=== PATIENT | female | born 1955 | race Caucasian/White ===

== ENCOUNTER 2020-10-18 13:06 | Inpatient (IN) ==
[2020-10-18] MEDS ORDERED: Isovue-370 500 ML BOTTLE IVP ONE (14:18)
[2020-10-18 15:04] LABS: Basophils % 0.4 %; Eosinophils # 0.3 K/mcL (0.0-0.6); Eosinophils % 2.5 %; Hematocrit 38.4 % (35.3-44.9); Hemoglobin 12.4 g/dL (11.5-15.4); Immature Granulocytes % 0.8 % (0-4); Lymphocytes # 2.3 K/mcL (0.6-4.6); Lymphocytes % 21.3 %; Mean Corpuscular HGB Conc 32.3 g/dL (31.6-35.5); Mean Corpuscular Hemoglobin 27.4 pg (28.0-33.3); Mean Platelet Volume 8.7 fL (9.4-12.4); Monocytes # 0.7 K/mcL (0.0-1.3); Monocytes % 6.4 %; Neutrophils # 7.4 K/mcL (1.6-8.9); Platelet Count 290 K/mcL (140-400); Red Blood Count 4.52 M/mcL (3.82-4.97); Red Cell Distribution Width 14.3 % (11.5-14.5); Segmented Neutrophils % 68.6 %; White Blood Count 10.8 K/mcL (4.3-11.1)
[2020-10-18 15:17] LABS: BUN/Creatinine Ratio 10 (6-26); Blood Urea Nitrogen 5 mg/dL (8-23); Calcium 9.3 mg/dL (8.6-10.3); Carbon Dioxide 28 mEq/L (23-29); Chloride 104 mEq/L (98-107); Glucose 170 mg/dL (70-105); Osmolality,Calculated 289 (280-300); Potassium 4.3 mEq/L (3.5-5.1); Sodium 139 mEq/L (136-145); eGFR For African Americans > 60 (> 60); eGFR For Non-African Americans > 60 (> 60)
[2020-10-18] MEDS ORDERED: Piperacillin/Tazobactam 3.375 GM in 0.9 % Sodium Chloride Mini Bag 100 ML IVPB ONE (16:34)
[2020-10-18] MEDS ORDERED: Vancomycin 1,750 MG/517.5 ML IV.SOLN IVPB ONE (17:00)
[2020-10-18] MEDS ORDERED: Naloxone 0.4 MG/ML INJ IVP PRN (17:11)
[2020-10-18] MEDS ORDERED: Ondansetron 4 MG/2 ML VIAL IVP PRN (17:11)
[2020-10-18] MEDS ORDERED: Dextrose Gel 15 GM/37.5 ML TUBE PO PRN ×2 (17:42)
[2020-10-18] MEDS ORDERED: D5% in Water 1,000 ML IVC PRN (17:42)
[2020-10-18] MEDS ORDERED: *HR* Dextrose 50 % in Water (Vial) 50 ML VIAL IVP PRN (17:42)
[2020-10-18 17:54] LABS: Estimated Average Glucose 249 mg/dl; Hemoglobin A1C 10.3 %
[2020-10-18 17:58] LABS: INR 1.2
[2020-10-18] MEDS ORDERED: Acetaminophen IV 1,000 MG/100 ML BAG IVPB PRN (18:42)
[2020-10-18] MEDS: Insulin LISPRO 300 UNITS/3 ML VIAL SUBQ SCH (19:02)
[2020-10-18] MEDS: *HR* Heparin 5,000 UNIT/ML VIAL SQ SCH (21:04)
[2020-10-18] MEDS: 0.9 % Sodium Chloride 1,000 ML IVC SCH (21:06)
[2020-10-19] MEDS ORDERED: Vancomycin 1,500 MG/265 ML IV.SOLN IVPB SCH ×2 (05:00→17:00)
[2020-10-19] MEDS: *HR* Heparin 5,000 UNIT/ML VIAL SQ SCH (06:28)
[2020-10-19] MEDS: Piperacillin/Tazobactam 3.375 GM in 0.9 % Sodium Chloride Mini Bag 100 ML IVPB SCH ×3 (06:45→16:42)
[2020-10-19] MEDS: Insulin LISPRO 300 UNITS/3 ML VIAL SUBQ SCH ×3 (06:46→17:05)
[2020-10-19 07:20] LABS: Basophils % 0.5 %; Eosinophils # 0.3 K/mcL (0.0-0.6); Eosinophils % 3.7 %; Hematocrit 34.9 % (35.3-44.9); Immature Granulocytes % 0.7 % (0-4); Lymphocytes # 2.6 K/mcL (0.6-4.6); Lymphocytes % 29.4 %; Mean Corpuscular HGB Conc 31.5 g/dL (31.6-35.5); Mean Corpuscular Hemoglobin 27.6 pg (28.0-33.3); Mean Corpuscular Volume 87.7 fL (83.0-100.0); Monocytes # 0.6 K/mcL (0.0-1.3); Monocytes % 7.3 %; Neutrophils # 5.1 K/mcL (1.6-8.9); Platelet Count 271 K/mcL (140-400); Red Blood Count 3.98 M/mcL (3.82-4.97); Red Cell Distribution Width 14.6 % (11.5-14.5); Segmented Neutrophils % 58.4 %; White Blood Count 8.7 K/mcL (4.3-11.1)
[2020-10-19 07:42] LABS: Alanine Aminotransferase 15 Units/L (7-52); Albumin 3.1 g/dL (3.5-5.7); Albumin/Globulin Ratio 1.2 (1.1-2.2); Alkaline Phosphatase 100 Units/L (34-104); Aspartate Amino Transferase 15 Units/L (13-39); BUN/Creatinine Ratio 13 (6-26); Bilirubin,Total 0.4 mg/dL (0.3-1.0); Blood Urea Nitrogen 7 mg/dL (8-23); Calcium 8.5 mg/dL (8.6-10.3); Carbon Dioxide 27 mEq/L (23-29); Chloride 107 mEq/L (98-107); Globulin 2.6 g/dL (2.4-3.5); Glucose 210 mg/dL (70-105); Osmolality,Calculated 294 (280-300); Potassium 3.8 mEq/L (3.5-5.1); Sodium 140 mEq/L (136-145); Total Protein 5.7 g/dL (6.4-8.9); eGFR For African Americans > 60 (> 60); eGFR For Non-African Americans > 60 (> 60)
[2020-10-19] MEDS ORDERED: *HR* Rocuronium Bromide 50 MG/5 ML VIAL ONE ×2 (07:53→09:07)
[2020-10-19 08:17] LABS: Adenovirus Not Detected (Not Detect); Bordetella Pertussis Not Detected (Not Detect); Chlamydophila pneumoniae Not Detected (Not Detect); Coronavirus 229E Not Detected (Not Detect); Coronavirus HKU1 Not Detected (Not Detect); Coronavirus NL63 Not Detected (Not Detect); Coronavirus OC43 Not Detected (Not Detect); Human Metapneumovirus Not Detected (Not Detect); Human Rhinovirus/Enterovirus Not Detected (Not Detect); Influenza A Subtype 2009 H1 Not Detected (Not Detect); Influenza B Not Detected (Not Detect); Mycoplasma pneumoniae Not Detected (Not Detect); Parainfluenza Virus 1 Not Detected (Not Detect); Parainfluenza Virus 2 Not Detected (Not Detect); Parainfluenza Virus 3 Not Detected (Not Detect); Parainfluenza Virus 4 Not Detected (Not Detect); Respiratory Syncytial Virus Not Detected (Not Detect); SARS-CoV-2 Not Detected (Not Detect)
[2020-10-19] MEDS ORDERED: Lidocaine -MPF 2% 2 ML VIAL ONE (09:07)
[2020-10-19] MEDS ORDERED: Dexamethasone 4 MG/ML VIAL ONE (09:07)
[2020-10-19] MEDS ORDERED: Ondansetron 4 MG/2 ML VIAL ONE (09:07)
[2020-10-19] MEDS ORDERED: *HR* FentaNYL (PF) 100 MCG/2 ML VIAL ONE (09:07)
[2020-10-19] MEDS ORDERED: *HR* Propofol 200 MG/20 ML VIAL IVP ONE (09:07)
[2020-10-19] MEDS ORDERED: Lidocaine HCL 4 ML Topical Solution (Laryng-O-Jet Kit Sterile Pak) TP ONE (09:10)
[2020-10-19] MEDS ORDERED: *HR* PHENYLEPHRINE 1,000 MCG/10 ML SYRINGE IVP ONE (10:00)
[2020-10-19] MEDS ORDERED: Sugammadex Sodium 200 MG/2 ML VIAL IV ONE (10:00)
[2020-10-19] MEDS ORDERED: EPHEDrine 50 MG/ML VIAL ONE (10:01)
[2020-10-19] MEDS ORDERED: *HR* Dextrose 50 % in Water (Vial) 50 ML VIAL IVP PRN (11:40)
[2020-10-19] MEDS ORDERED: Ondansetron 4 MG/2 ML VIAL IVP PRN (11:40)
[2020-10-19] MEDS ORDERED: Dextrose Gel 15 GM/37.5 ML TUBE PO PRN ×2 (11:40)
[2020-10-19] MEDS ORDERED: Naloxone 0.4 MG/ML INJ IVP PRN (11:40)
[2020-10-19] MEDS ORDERED: D5% in Water 1,000 ML IVC PRN (11:40)
[2020-10-19] MEDS ORDERED: 0.9 % Sodium Chloride 1,000 ML IVC SCH (11:40)
[2020-10-19] MEDS ORDERED: Acetaminophen IV 1,000 MG/100 ML BAG IVPB PRN (11:40)
[2020-10-19] MEDS ORDERED: Insulin LISPRO 300 UNITS/3 ML VIAL SUBQ SCH ×2 (12:00→21:00)
[2020-10-19] MEDS: 0.9 % Sodium Chloride 1,000 ML IVC SCH (16:40)
[2020-10-19] MEDS: BuPROPion SR (12 HR) 150 MG TABLET PO SCH (20:21)
[2020-10-20] MEDS: Piperacillin/Tazobactam 3.375 GM in 0.9 % Sodium Chloride Mini Bag 100 ML IVPB SCH ×4 (00:06→23:20)
[2020-10-20 03:45] LABS: Basophils % 0.4 %; Eosinophils # 0.2 K/mcL (0.0-0.6); Eosinophils % 1.7 %; Hematocrit 34.4 % (35.3-44.9); Hemoglobin 10.8 g/dL (11.5-15.4); Immature Granulocytes % 1.1 % (0-4); Lymphocytes # 2.5 K/mcL (0.6-4.6); Mean Corpuscular HGB Conc 31.4 g/dL (31.6-35.5); Mean Corpuscular Hemoglobin 27.1 pg (28.0-33.3); Mean Corpuscular Volume 86.4 fL (83.0-100.0); Mean Platelet Volume 8.9 fL (9.4-12.4); Monocytes # 0.7 K/mcL (0.0-1.3); Monocytes % 6.4 %; Neutrophils # 6.8 K/mcL (1.6-8.9); Platelet Count 293 K/mcL (140-400); Red Blood Count 3.98 M/mcL (3.82-4.97); Red Cell Distribution Width 14.3 % (11.5-14.5); Segmented Neutrophils % 66.4 %; White Blood Count 10.3 K/mcL (4.3-11.1)
[2020-10-20 04:01] LABS: BUN/Creatinine Ratio 11 (6-26); Blood Urea Nitrogen 8 mg/dL (8-23); Calcium 8.5 mg/dL (8.6-10.3); Carbon Dioxide 27 mEq/L (23-29); Chloride 104 mEq/L (98-107); Glucose 259 mg/dL (70-105); Osmolality,Calculated 293 (280-300); Sodium 138 mEq/L (136-145); eGFR For African Americans > 60 (> 60); eGFR For Non-African Americans > 60 (> 60)
[2020-10-20] MEDS: Vancomycin 1,500 MG/265 ML IV.SOLN IVPB SCH (05:18)
[2020-10-20] MEDS: Insulin LISPRO 300 UNITS/3 ML VIAL SUBQ SCH ×3 (08:49→18:06)
[2020-10-20] MEDS: lisinopriL 20 MG TABLET PO SCH (08:51)
[2020-10-20] MEDS: BuPROPion SR (12 HR) 150 MG TABLET PO SCH ×2 (08:51→21:28)
[2020-10-20] MEDS: Insulin DETEMIR 100 UNIT/ML X5UNITS SUBQ SCH (21:28)
[2020-10-21 04:26] LABS: Basophils # 0.1 K/mcL (0.0-0.2); Basophils % 0.6 %; Eosinophils # 0.3 K/mcL (0.0-0.6); Eosinophils % 3.3 %; Hematocrit 33.1 % (35.3-44.9); Hemoglobin 10.6 g/dL (11.5-15.4); Lymphocytes # 2.7 K/mcL (0.6-4.6); Lymphocytes % 30.7 %; Mean Corpuscular Hemoglobin 27.7 pg (28.0-33.3); Mean Corpuscular Volume 86.6 fL (83.0-100.0); Mean Platelet Volume 8.6 fL (9.4-12.4); Monocytes # 0.5 K/mcL (0.0-1.3); Monocytes % 5.6 %; Neutrophils # 5.1 K/mcL (1.6-8.9); Platelet Count 278 K/mcL (140-400); Red Blood Count 3.82 M/mcL (3.82-4.97); Red Cell Distribution Width 14.6 % (11.5-14.5); Segmented Neutrophils % 58.8 %; White Blood Count 8.7 K/mcL (4.3-11.1)
[2020-10-21 04:45] LABS: BUN/Creatinine Ratio 12 (6-26); Blood Urea Nitrogen 7 mg/dL (8-23); Calcium 8.5 mg/dL (8.6-10.3); Carbon Dioxide 27 mEq/L (23-29); Chloride 104 mEq/L (98-107); Glucose 275 mg/dL (70-105); Osmolality,Calculated 294 (280-300); Potassium 3.9 mEq/L (3.5-5.1); Sodium 138 mEq/L (136-145); eGFR For African Americans > 60 (> 60); eGFR For Non-African Americans > 60 (> 60)
[2020-10-21] MEDS: Vancomycin 1,500 MG/265 ML IV.SOLN IVPB SCH (05:07)
[2020-10-21] MEDS: Piperacillin/Tazobactam 3.375 GM in 0.9 % Sodium Chloride Mini Bag 100 ML IVPB SCH ×2 (08:57→18:04)
[2020-10-21] MEDS: lisinopriL 20 MG TABLET PO SCH (08:58)
[2020-10-21] MEDS: BuPROPion SR (12 HR) 150 MG TABLET PO SCH ×2 (08:59→20:50)
[2020-10-21] MEDS: Calcium Gluconate 1gm/50mL 1 GM/50 ML BAG IVPB SCH ×2 (08:59→16:58)
[2020-10-21] MEDS: Insulin LISPRO 300 UNITS/3 ML VIAL SUBQ SCH ×4 (09:52→17:02)
[2020-10-21] MEDS ORDERED: Melatonin 3 MG TABLET PO PRN (16:05)
[2020-10-21] MEDS: *HR* Heparin 5,000 UNIT/ML VIAL SQ SCH (16:59)
[2020-10-21] MEDS: Vancomycin 1,250 MG/262.5 ML IV.SOLN IVPB SCH (18:05)
[2020-10-21] MEDS: Insulin DETEMIR 100 UNIT/ML X5UNITS SUBQ SCH (22:04)
[2020-10-22] MEDS: Piperacillin/Tazobactam 3.375 GM in 0.9 % Sodium Chloride Mini Bag 100 ML IVPB SCH ×2 (00:54→20:52)
[2020-10-22] MEDS: Vancomycin 1,250 MG/262.5 ML IV.SOLN IVPB SCH (05:21)
[2020-10-22] MEDS: *HR* Heparin 5,000 UNIT/ML VIAL SQ SCH ×2 (05:22→17:15)
[2020-10-22 06:30] LABS: Hematocrit 34.8 % (35.3-44.9); Mean Corpuscular HGB Conc 31.6 g/dL (31.6-35.5); Mean Corpuscular Hemoglobin 27.5 pg (28.0-33.3); Mean Platelet Volume 9.7 fL (9.4-12.4); Platelet Count 230 K/mcL (140-400); Red Cell Distribution Width 14.5 % (11.5-14.5)
[2020-10-22 06:51] LABS: % Iron Saturation 16 % (15-50); BUN/Creatinine Ratio 14 (6-26); Blood Urea Nitrogen 8 mg/dL (8-23); Carbon Dioxide 27 mEq/L (23-29); Chloride 102 mEq/L (98-107); Glucose 223 mg/dL (70-105); Iron 43 mcg/dL (50-170); Magnesium 1.7 mg/dL (1.6-2.6); Osmolality,Calculated 291 (280-300); Phosphorous 3.7 mg/dL (2.7-4.5); Potassium 3.6 mEq/L (3.5-5.1); Sodium 138 mEq/L (136-145); Transferrin 188 mg/dL (203-362); eGFR For African Americans > 60 (> 60); eGFR For Non-African Americans > 60 (> 60)
[2020-10-22 07:07] LABS: Ferritin 215 ng/mL (10-120)
[2020-10-22 07:13] LABS: Folate 10.5 ng/mL (3.0-16.0)
[2020-10-22] MEDS ORDERED: Iron Sucrose Complex 400 MG in 0.9 % Sodium Chloride 250 ML IVPB ONE (07:27)
[2020-10-22] MEDS: BuPROPion SR (12 HR) 150 MG TABLET PO SCH ×2 (08:13→19:30)
[2020-10-22] MEDS: Multivit/Ca/Min/Fe/FA 1 TAB TABLET PO SCH (08:13)
[2020-10-22] MEDS: lisinopriL 20 MG TABLET PO SCH (08:13)
[2020-10-22] MEDS: Cyanocobalamin (B-12) 1,000 MCG TABLET PO SCH (08:13)
[2020-10-22] MEDS: NIFEdipine XL (24 HR) 30 MG TAB.ER.24 PO SCH (08:13)
[2020-10-22] MEDS: Insulin LISPRO 300 UNITS/3 ML VIAL SUBQ SCH ×6 (08:14→17:15)
[2020-10-22] MEDS: levoFLOXacin 750 MG TABLET PO SCH (13:10)
[2020-10-22] MEDS: Amoxicillin 500 MG CAPSULE PO SCH ×2 (13:10→19:30)
[2020-10-22] MEDS: Lactobacillus 1 EACH CAP.SPRINK PO SCH ×2 (13:10→19:30)
[2020-10-22] MEDS: Doxycycline 100 MG CAPSULE PO SCH ×2 (13:10→19:30)
[2020-10-22] MEDS ORDERED: Sennosides/Docusate Sodium TABLET PO PRN (15:35)
[2020-10-22] MEDS: Insulin DETEMIR 100 UNIT/ML X5UNITS SUBQ SCH (20:48)
[2020-10-23 02:13] LABS: Hematocrit 36.1 % (35.3-44.9); Hemoglobin 11.7 g/dL (11.5-15.4); Mean Corpuscular HGB Conc 32.4 g/dL (31.6-35.5); Mean Corpuscular Hemoglobin 27.9 pg (28.0-33.3); Mean Platelet Volume 8.8 fL (9.4-12.4); Platelet Count 273 K/mcL (140-400); Red Cell Distribution Width 14.8 % (11.5-14.5); White Blood Count 8.5 K/mcL (4.3-11.1)
[2020-10-23 02:31] LABS: BUN/Creatinine Ratio 15 (6-26); Blood Urea Nitrogen 8 mg/dL (8-23); Carbon Dioxide 25 mEq/L (23-29); Chloride 103 mEq/L (98-107); Glucose 212 mg/dL (70-105); Magnesium 1.7 mg/dL (1.6-2.6); Osmolality,Calculated 289 (280-300); Phosphorous 3.4 mg/dL (2.7-4.5); Potassium 3.6 mEq/L (3.5-5.1); Sodium 137 mEq/L (136-145); eGFR For African Americans > 60 (> 60); eGFR For Non-African Americans > 60 (> 60)
[2020-10-23] MEDS: *HR* Heparin 5,000 UNIT/ML VIAL SQ SCH ×2 (05:33→18:56)
[2020-10-23] MEDS: Multivit/Ca/Min/Fe/FA 1 TAB TABLET PO SCH (10:45)
[2020-10-23] MEDS: Amoxicillin 500 MG CAPSULE PO SCH ×2 (10:45→19:29)
[2020-10-23] MEDS: Cyanocobalamin (B-12) 1,000 MCG TABLET PO SCH (10:45)
[2020-10-23] MEDS: NIFEdipine XL (24 HR) 30 MG TAB.ER.24 PO SCH (10:45)
[2020-10-23] MEDS: BuPROPion SR (12 HR) 150 MG TABLET PO SCH ×2 (10:45→19:29)
[2020-10-23] MEDS: Doxycycline 100 MG CAPSULE PO SCH ×2 (10:46→19:29)
[2020-10-23] MEDS: levoFLOXacin 750 MG TABLET PO SCH (10:46)
[2020-10-23] MEDS: Magnesium Oxide 400 MG TABLET PO SCH ×2 (10:46→19:29)
[2020-10-23] MEDS: lisinopriL 20 MG TABLET PO SCH (10:46)
[2020-10-23] MEDS: Lactobacillus 1 EACH CAP.SPRINK PO SCH ×2 (10:46→19:29)
[2020-10-23] MEDS: Insulin LISPRO 300 UNITS/3 ML VIAL SUBQ SCH ×6 (10:46→18:56)
[2020-10-23] MEDS: Insulin DETEMIR 100 UNIT/ML X5UNITS SUBQ SCH (20:32)
[2020-10-24] MEDS: *HR* Heparin 5,000 UNIT/ML VIAL SQ SCH ×2 (05:25→17:21)
[2020-10-24 05:48] LABS: Hematocrit 36.9 % (35.3-44.9); Hemoglobin 11.4 g/dL (11.5-15.4); Mean Corpuscular HGB Conc 30.9 g/dL (31.6-35.5); Mean Corpuscular Hemoglobin 26.9 pg (28.0-33.3); Mean Platelet Volume 8.5 fL (9.4-12.4); Platelet Count 276 K/mcL (140-400); Red Blood Count 4.24 M/mcL (3.82-4.97); Red Cell Distribution Width 15.3 % (11.5-14.5); White Blood Count 8.8 K/mcL (4.3-11.1)
[2020-10-24 06:11] LABS: BUN/Creatinine Ratio 27 (6-26); Blood Urea Nitrogen 18 mg/dL (8-23); Calcium 9.1 mg/dL (8.6-10.3); Carbon Dioxide 25 mEq/L (23-29); Chloride 103 mEq/L (98-107); Glucose 223 mg/dL (70-105); Magnesium 1.9 mg/dL (1.6-2.6); Osmolality,Calculated 291 (280-300); Phosphorous 3.7 mg/dL (2.7-4.5); Potassium 4.2 mEq/L (3.5-5.1); Sodium 136 mEq/L (136-145); eGFR For African Americans > 60 (> 60); eGFR For Non-African Americans > 60 (> 60)
[2020-10-24] MEDS: Magnesium Oxide 400 MG TABLET PO SCH ×2 (07:57→19:51)
[2020-10-24] MEDS: Lactobacillus 1 EACH CAP.SPRINK PO SCH ×2 (07:57→19:51)
[2020-10-24] MEDS: BuPROPion SR (12 HR) 150 MG TABLET PO SCH ×2 (07:57→19:51)
[2020-10-24] MEDS: Amoxicillin 500 MG CAPSULE PO SCH ×2 (07:57→19:51)
[2020-10-24] MEDS: Doxycycline 100 MG CAPSULE PO SCH ×2 (07:57→19:51)
[2020-10-24] MEDS: Cyanocobalamin (B-12) 1,000 MCG TABLET PO SCH (07:58)
[2020-10-24] MEDS: Insulin LISPRO 300 UNITS/3 ML VIAL SUBQ SCH ×6 (07:58→17:22)
[2020-10-24] MEDS: Multivit/Ca/Min/Fe/FA 1 TAB TABLET PO SCH (07:58)
[2020-10-24] MEDS: lisinopriL 20 MG TABLET PO SCH (07:58)
[2020-10-24] MEDS: NIFEdipine XL (24 HR) 30 MG TAB.ER.24 PO SCH (07:58)
[2020-10-24] MEDS: levoFLOXacin 750 MG TABLET PO SCH (07:58)
[2020-10-24] MEDS: Insulin DETEMIR 100 UNIT/ML X5UNITS SUBQ SCH (19:56)
[2020-10-24] MEDS: Acetaminophen 325 MG TABLET PO PRN (23:39)
[2020-10-25] MEDS: *HR* Heparin 5,000 UNIT/ML VIAL SQ SCH ×2 (05:03→17:24)
[2020-10-25] MEDS: Cyanocobalamin (B-12) 1,000 MCG TABLET PO SCH (08:35)
[2020-10-25] MEDS: Doxycycline 100 MG CAPSULE PO SCH ×2 (08:35→19:04)
[2020-10-25] MEDS: Lactobacillus 1 EACH CAP.SPRINK PO SCH ×2 (08:35→19:04)
[2020-10-25] MEDS: NIFEdipine XL (24 HR) 30 MG TAB.ER.24 PO SCH (08:35)
[2020-10-25] MEDS: BuPROPion SR (12 HR) 150 MG TABLET PO SCH ×2 (08:36→19:04)
[2020-10-25] MEDS: Magnesium Oxide 400 MG TABLET PO SCH ×2 (08:36→19:04)
[2020-10-25] MEDS: Amoxicillin 500 MG CAPSULE PO SCH ×2 (08:36→19:04)
[2020-10-25] MEDS: lisinopriL 20 MG TABLET PO SCH (08:36)
[2020-10-25] MEDS: levoFLOXacin 750 MG TABLET PO SCH (08:36)
[2020-10-25] MEDS: Multivit/Ca/Min/Fe/FA 1 TAB TABLET PO SCH (08:36)
[2020-10-25] MEDS: Insulin LISPRO 300 UNITS/3 ML VIAL SUBQ SCH ×6 (08:37→17:24)
[2020-10-25] MEDS: Acetaminophen 325 MG TABLET PO PRN ×2 (12:52→22:20)
[2020-10-25] MEDS: Insulin DETEMIR 100 UNIT/ML X5UNITS SUBQ SCH (20:09)
[2020-10-26] MEDS: *HR* Heparin 5,000 UNIT/ML VIAL SQ SCH ×2 (05:16→17:26)
[2020-10-26 05:30] LABS: Hematocrit 36.3 % (35.3-44.9); Hemoglobin 11.2 g/dL (11.5-15.4); Mean Corpuscular HGB Conc 30.9 g/dL (31.6-35.5); Mean Corpuscular Hemoglobin 26.9 pg (28.0-33.3); Mean Corpuscular Volume 87.3 fL (83.0-100.0); Platelet Count 277 K/mcL (140-400); Red Blood Count 4.16 M/mcL (3.82-4.97); Red Cell Distribution Width 15.7 % (11.5-14.5); White Blood Count 9.7 K/mcL (4.3-11.1)
[2020-10-26 05:48] LABS: BUN/Creatinine Ratio 35 (6-26); Blood Urea Nitrogen 26 mg/dL (8-23); Calcium 9.1 mg/dL (8.6-10.3); Carbon Dioxide 28 mEq/L (23-29); Chloride 104 mEq/L (98-107); Glucose 218 mg/dL (70-105); Osmolality,Calculated 297 (280-300); Potassium 4.3 mEq/L (3.5-5.1); Sodium 138 mEq/L (136-145); eGFR For African Americans > 60 (> 60); eGFR For Non-African Americans > 60 (> 60)
[2020-10-26] MEDS: Cyanocobalamin (B-12) 1,000 MCG TABLET PO SCH (08:17)
[2020-10-26] MEDS: Multivit/Ca/Min/Fe/FA 1 TAB TABLET PO SCH (08:17)
[2020-10-26] MEDS: NIFEdipine XL (24 HR) 30 MG TAB.ER.24 PO SCH (08:17)
[2020-10-26] MEDS: levoFLOXacin 750 MG TABLET PO SCH (08:17)
[2020-10-26] MEDS: Magnesium Oxide 400 MG TABLET PO SCH ×2 (08:18→21:18)
[2020-10-26] MEDS: Doxycycline 100 MG CAPSULE PO SCH ×2 (08:18→21:18)
[2020-10-26] MEDS: BuPROPion SR (12 HR) 150 MG TABLET PO SCH ×2 (08:18→21:18)
[2020-10-26] MEDS: Amoxicillin 500 MG CAPSULE PO SCH ×2 (08:18→21:18)
[2020-10-26] MEDS: lisinopriL 20 MG TABLET PO SCH (08:18)
[2020-10-26] MEDS: Lactobacillus 1 EACH CAP.SPRINK PO SCH ×2 (08:18→21:18)
[2020-10-26] MEDS: Insulin LISPRO 300 UNITS/3 ML VIAL SUBQ SCH ×6 (08:26→18:54)
[2020-10-26] MEDS ORDERED: Insulin DETEMIR 100 UNIT/ML X5UNITS SUBQ SCH (21:00)
[2020-10-27 04:22] LABS: Hematocrit 37.2 % (35.3-44.9); Hemoglobin 11.7 g/dL (11.5-15.4); Mean Corpuscular HGB Conc 31.5 g/dL (31.6-35.5); Mean Corpuscular Hemoglobin 27.4 pg (28.0-33.3); Mean Corpuscular Volume 87.1 fL (83.0-100.0); Mean Platelet Volume 8.9 fL (9.4-12.4); Platelet Count 266 K/mcL (140-400); Red Blood Count 4.27 M/mcL (3.82-4.97); Red Cell Distribution Width 15.5 % (11.5-14.5); White Blood Count 9.4 K/mcL (4.3-11.1)
[2020-10-27 04:41] LABS: BUN/Creatinine Ratio 33 (6-26); Blood Urea Nitrogen 25 mg/dL (8-23); Calcium 9.2 mg/dL (8.6-10.3); Carbon Dioxide 23 mEq/L (23-29); Chloride 105 mEq/L (98-107); Glucose 235 mg/dL (70-105); Magnesium 1.9 mg/dL (1.6-2.6); Osmolality,Calculated 294 (280-300); Phosphorous 3.9 mg/dL (2.7-4.5); Sodium 136 mEq/L (136-145); eGFR For African Americans > 60 (> 60); eGFR For Non-African Americans > 60 (> 60)
[2020-10-27] MEDS: *HR* Heparin 5,000 UNIT/ML VIAL SQ SCH (05:02)
[2020-10-27 07:57] VITALS: BP 130/75
[2020-10-27] MEDS: Cyanocobalamin (B-12) 1,000 MCG TABLET PO SCH (09:56)
[2020-10-27] MEDS: Lactobacillus 1 EACH CAP.SPRINK PO SCH (09:56)
[2020-10-27] MEDS: levoFLOXacin 750 MG TABLET PO SCH (09:56)
[2020-10-27] MEDS: BuPROPion SR (12 HR) 150 MG TABLET PO SCH (09:56)
[2020-10-27] MEDS: Amoxicillin 500 MG CAPSULE PO SCH (09:56)
[2020-10-27] MEDS: NIFEdipine XL (24 HR) 30 MG TAB.ER.24 PO SCH (09:56)
[2020-10-27] MEDS: Magnesium Oxide 400 MG TABLET PO SCH (09:56)
[2020-10-27] MEDS: lisinopriL 20 MG TABLET PO SCH (09:56)
[2020-10-27] MEDS: Insulin LISPRO 300 UNITS/3 ML VIAL SUBQ SCH ×4 (09:57→12:23)
[2020-10-27] MEDS: Multivit/Ca/Min/Fe/FA 1 TAB TABLET PO SCH (09:57)
[2020-10-27] MEDS: Doxycycline 100 MG CAPSULE PO SCH (10:02)
== END 2020-10-27 15:36 | disposition home health service (06) | DRG 571 ==
LOC: 3ANU 13:06 → EMEROOARM 13:06 → SUATTDRO 16:49 → 3ANU 18:24 → SUATTDRO 10-20 15:24
PROVIDERS: ADMIT General Practice; ATTEND Internal Medicine

== ENCOUNTER 2021-07-06 14:00 | Inpatient (IN) ==
[2021-07-06] MEDS ORDERED: Melatonin 3 MG TABLET PO PRN (18:39)
[2021-07-06] MEDS ORDERED: Naloxone 0.4 MG/ML INJ IVP PRN (18:39)
[2021-07-06] MEDS ORDERED: Acetaminophen 325 MG TABLET PO PRN (18:39)
[2021-07-06] MEDS ORDERED: Remdesivir 200 MG in 0.9 % Sodium Chloride 100 ML IVPB ONE (18:41)
[2021-07-06] MEDS ORDERED: *HR* Dextrose 50 % in Water (Syg) 50 ML SYRINGE IVP PRN (20:36)
[2021-07-06] MEDS ORDERED: Dextrose Gel 15 GM/37.5 ML TUBE PO PRN ×2 (20:36)
[2021-07-06] MEDS ORDERED: D5% in Water 1,000 ML IVC PRN (20:36)
[2021-07-06] MEDS: Insulin DETEMIR 100 UNIT/ML X5UNITS SUBQ SCH (21:49)
[2021-07-06] MEDS: Insulin LISPRO 300 UNITS/3 ML VIAL SUBQ SCH (21:49)
[2021-07-07] MEDS: *HR* Enoxaparin 40 MG/0.4 ML SYRINGE SQ SCH (05:14)
[2021-07-07 05:34] LABS: Hemoglobin 11.8 g/dL (11.5-15.4); Mean Corpuscular HGB Conc 32.8 g/dL (31.6-35.5); Mean Corpuscular Hemoglobin 27.6 pg (28.0-33.3); Mean Corpuscular Volume 84.1 fL (83.0-100.0); Mean Platelet Volume 9.4 fL (9.4-12.4); Platelet Count 268 K/mcL (140-400); Red Blood Count 4.28 M/mcL (3.82-4.97); Red Cell Distribution Width 14.5 % (11.5-14.5); White Blood Count 7.2 K/mcL (4.3-11.1)
[2021-07-07 06:29] LABS: Alanine Aminotransferase 11 Units/L (7-52); Albumin 3.5 g/dL (3.5-5.7); Albumin/Globulin Ratio 1.2 (1.1-2.2); Alkaline Phosphatase 70 Units/L (34-104); Aspartate Amino Transferase 18 Units/L (13-39); BUN/Creatinine Ratio 31 (6-26); Bilirubin,Total 0.4 mg/dL (0.3-1.0); Blood Urea Nitrogen 21 mg/dL (8-23); Calcium 8.5 mg/dL (8.6-10.3); Carbon Dioxide 27 mEq/L (23-29); Chloride 97 mEq/L (98-107); Globulin 2.9 g/dL (2.4-3.5); Glucose 315 mg/dL (70-105); Magnesium 2.1 mg/dL (1.6-2.6); Osmolality,Calculated 297 (280-300); Phosphorous 3.1 mg/dL (2.7-4.5); Potassium 3.7 mEq/L (3.5-5.1); Sodium 136 mEq/L (136-145); Total Protein 6.4 g/dL (6.4-8.9); eGFR For African Americans > 60 (> 60); eGFR For Non-African Americans > 60 (> 60)
[2021-07-07] MEDS ORDERED: Remdesivir 100 MG in 0.9 % Sodium Chloride 100 ML IVPB SCH ×2 (09:00→15:00)
[2021-07-07] MEDS: Insulin LISPRO 300 UNITS/3 ML VIAL SUBQ SCH ×4 (09:51→20:54)
[2021-07-07 09:52] LABS: C-Reactive Protein 94 mg/L (Less than 10)
[2021-07-07] MEDS: Furosemide 40 MG TABLET PO SCH (09:52)
[2021-07-07] MEDS: NIFEdipine XL (24 HR) 30 MG TAB.ER.24 PO SCH (09:52)
[2021-07-07] MEDS: Insulin DETEMIR 100 UNIT/ML X5UNITS SUBQ SCH ×2 (09:52→20:54)
[2021-07-07] MEDS: levoFLOXacin 750 MG/150 ML 750 MG/150 ML BAG IVPB SCH ×3 (09:53→18:53)
[2021-07-07] MEDS: Dexamethasone Sodium Phos/PF 10 MG/ML VIAL IVP SCH (09:53)
[2021-07-07] MEDS: Remdesivir 100 MG in 0.9 % Sodium Chloride 100 ML IVPB SCH (18:32)
[2021-07-08 04:06] LABS: Basophils % 0.1 %; Hematocrit 37.3 % (35.3-44.9); Hemoglobin 11.9 g/dL (11.5-15.4); Immature Granulocytes % 0.7 % (0-4); Lymphocytes # 0.8 K/mcL (0.6-4.6); Lymphocytes % 11.3 %; Mean Corpuscular HGB Conc 31.9 g/dL (31.6-35.5); Mean Corpuscular Hemoglobin 26.9 pg (28.0-33.3); Mean Corpuscular Volume 84.4 fL (83.0-100.0); Mean Platelet Volume 9.1 fL (9.4-12.4); Monocytes # 0.3 K/mcL (0.0-1.3); Monocytes % 4.9 %; Neutrophils # 5.7 K/mcL (1.6-8.9); Platelet Count 283 K/mcL (140-400); Red Blood Count 4.42 M/mcL (3.82-4.97); Red Cell Distribution Width 14.4 % (11.5-14.5); White Blood Count 6.9 K/mcL (4.3-11.1)
[2021-07-08 04:14] LABS: INR 1.3; Prothrombin Time 14.2 Seconds (9.4-12.1)
[2021-07-08 04:26] LABS: BUN/Creatinine Ratio 32 (6-26); Blood Urea Nitrogen 22 mg/dL (8-23); Calcium 8.6 mg/dL (8.6-10.3); Carbon Dioxide 33 mEq/L (23-29); Chloride 98 mEq/L (98-107); Glucose 292 mg/dL (70-105); Magnesium 2.2 mg/dL (1.6-2.6); Osmolality,Calculated 302 (280-300); Phosphorous 2.7 mg/dL (2.7-4.5); Sodium 139 mEq/L (136-145); eGFR For African Americans > 60 (> 60); eGFR For Non-African Americans > 60 (> 60)
[2021-07-08] MEDS: *HR* Enoxaparin 40 MG/0.4 ML SYRINGE SQ SCH ×2 (05:21→17:14)
[2021-07-08] MEDS: NIFEdipine XL (24 HR) 30 MG TAB.ER.24 PO SCH (08:18)
[2021-07-08] MEDS: Furosemide 40 MG TABLET PO SCH (08:18)
[2021-07-08] MEDS: Insulin DETEMIR 100 UNIT/ML X5UNITS SUBQ SCH ×2 (08:18→21:11)
[2021-07-08] MEDS: Insulin LISPRO 300 UNITS/3 ML VIAL SUBQ SCH ×4 (08:19→21:10)
[2021-07-08] MEDS: Dexamethasone Sodium Phos/PF 10 MG/ML VIAL IVP SCH (08:20)
[2021-07-08] MEDS: levoFLOXacin 750 MG/150 ML 750 MG/150 ML BAG IVPB SCH (13:38)
[2021-07-08] MEDS: Remdesivir 100 MG in 0.9 % Sodium Chloride 100 ML IVPB SCH (17:14)
[2021-07-09] MEDS: *HR* Enoxaparin 40 MG/0.4 ML SYRINGE SQ SCH ×2 (06:33→17:22)
[2021-07-09] MEDS: Dexamethasone Sodium Phos/PF 10 MG/ML VIAL IVP SCH (07:47)
[2021-07-09] MEDS: Furosemide 40 MG TABLET PO SCH (07:47)
[2021-07-09] MEDS: Insulin DETEMIR 100 UNIT/ML X5UNITS SUBQ SCH ×2 (07:47→20:32)
[2021-07-09] MEDS: NIFEdipine XL (24 HR) 30 MG TAB.ER.24 PO SCH (07:47)
[2021-07-09] MEDS: Insulin LISPRO 300 UNITS/3 ML VIAL SUBQ SCH ×4 (08:19→20:31)
[2021-07-09] MEDS ORDERED: Benzonatate 100 MG CAPSULE PO PRN (08:59)
[2021-07-09 13:12] LABS: Hematocrit 40.8 % (35.3-44.9); Hemoglobin 13.1 g/dL (11.5-15.4); Lymphocytes # 0.8 K/mcL (0.6-4.6); Mean Corpuscular HGB Conc 32.1 g/dL (31.6-35.5); Mean Corpuscular Hemoglobin 27.6 pg (28.0-33.3); Mean Corpuscular Volume 85.9 fL (83.0-100.0); Mean Platelet Volume 8.8 fL (9.4-12.4); Platelet Count 376 K/mcL (140-400); Red Blood Count 4.75 M/mcL (3.82-4.97); Red Cell Distribution Width 14.2 % (11.5-14.5); White Blood Count 9.8 K/mcL (4.3-11.1)
[2021-07-09 13:24] LABS: INR 1.2; Prothrombin Time 13.3 Seconds (9.4-12.1)
[2021-07-09 13:31] LABS: BUN/Creatinine Ratio 33 (6-26); Blood Urea Nitrogen 19 mg/dL (8-23); Calcium 8.7 mg/dL (8.6-10.3); Carbon Dioxide 30 mEq/L (23-29); Chloride 99 mEq/L (98-107); Glucose 349 mg/dL (70-105); Magnesium 2.1 mg/dL (1.6-2.6); Osmolality,Calculated 304 (280-300); Phosphorous 2.6 mg/dL (2.7-4.5); Potassium 3.9 mEq/L (3.5-5.1); Sodium 139 mEq/L (136-145); eGFR For African Americans > 60 (> 60); eGFR For Non-African Americans > 60 (> 60)
[2021-07-09 13:57] LABS: Platelet Estimate Normal (Normal)
[2021-07-09 13:59] LABS: Reactive Lymphocytes Present (Not Present)
[2021-07-09] MEDS: levoFLOXacin 750 MG/150 ML 750 MG/150 ML BAG IVPB SCH (15:37)
[2021-07-09] MEDS: Remdesivir 100 MG in 0.9 % Sodium Chloride 100 ML IVPB SCH (17:15)
[2021-07-09 19:40] LABS: Alanine Aminotransferase 9 Units/L (7-52); Aspartate Amino Transferase 14 Units/L (13-39); C-Reactive Protein 47 mg/L (Less than 10)
[2021-07-10] MEDS: *HR* Enoxaparin 40 MG/0.4 ML SYRINGE SQ SCH ×2 (05:51→16:51)
[2021-07-10] MEDS: NIFEdipine XL (24 HR) 30 MG TAB.ER.24 PO SCH (09:01)
[2021-07-10] MEDS: Dexamethasone Sodium Phos/PF 10 MG/ML VIAL IVP SCH (09:01)
[2021-07-10] MEDS: Insulin DETEMIR 100 UNIT/ML X5UNITS SUBQ SCH ×2 (09:01→20:53)
[2021-07-10] MEDS: Furosemide 40 MG TABLET PO SCH (09:01)
[2021-07-10] MEDS: Insulin LISPRO 300 UNITS/3 ML VIAL SUBQ SCH ×4 (09:02→20:51)
[2021-07-10] MEDS ORDERED: Insulin DETEMIR 100 UNIT/ML X5UNITS SUBQ ONE (09:18)
[2021-07-10 11:51] LABS: Basophils # 0.1 K/mcL (0.0-0.2); Basophils % 0.3 %; Hematocrit 40.5 % (35.3-44.9); Hemoglobin 12.8 g/dL (11.5-15.4); Immature Granulocytes % 1.5 % (0-4); Lymphocytes # 1.1 K/mcL (0.6-4.6); Lymphocytes % 6.8 %; Mean Corpuscular HGB Conc 31.6 g/dL (31.6-35.5); Mean Corpuscular Hemoglobin 27.2 pg (28.0-33.3); Mean Platelet Volume 8.9 fL (9.4-12.4); Monocytes # 0.8 K/mcL (0.0-1.3); Monocytes % 4.9 %; Neutrophils # 13.7 K/mcL (1.6-8.9); Platelet Count 410 K/mcL (140-400); Red Blood Count 4.71 M/mcL (3.82-4.97); Segmented Neutrophils % 86.5 %; White Blood Count 15.8 K/mcL (4.3-11.1)
[2021-07-10 12:02] LABS: BUN/Creatinine Ratio 28 (6-26); Blood Urea Nitrogen 18 mg/dL (8-23); Calcium 8.4 mg/dL (8.6-10.3); Carbon Dioxide 33 mEq/L (23-29); Chloride 98 mEq/L (98-107); Glucose 279 mg/dL (70-105); Magnesium 1.9 mg/dL (1.6-2.6); Osmolality,Calculated 300 (280-300); Phosphorous 2.6 mg/dL (2.7-4.5); Potassium 3.6 mEq/L (3.5-5.1); Sodium 139 mEq/L (136-145); eGFR For African Americans > 60 (> 60); eGFR For Non-African Americans > 60 (> 60)
[2021-07-10 12:03] LABS: INR 1.2; Prothrombin Time 13.3 Seconds (9.4-12.1)
[2021-07-10] MEDS: levoFLOXacin 750 MG/150 ML 750 MG/150 ML BAG IVPB SCH (14:24)
[2021-07-11 05:25] LABS: Basophils # 0.1 K/mcL (0.0-0.2); Basophils % 0.4 %; Eosinophils % 0.1 %; Hematocrit 39.6 % (35.3-44.9); Hemoglobin 12.9 g/dL (11.5-15.4); INR 1.3; Immature Granulocytes % 2.1 % (0-4); Lymphocytes # 1.7 K/mcL (0.6-4.6); Lymphocytes % 12.5 %; Mean Corpuscular HGB Conc 32.6 g/dL (31.6-35.5); Mean Corpuscular Hemoglobin 27.4 pg (28.0-33.3); Mean Corpuscular Volume 84.1 fL (83.0-100.0); Mean Platelet Volume 8.9 fL (9.4-12.4); Monocytes # 0.7 K/mcL (0.0-1.3); Monocytes % 5.1 %; Neutrophils # 10.7 K/mcL (1.6-8.9); Platelet Count 441 K/mcL (140-400); Prothrombin Time 14.5 Seconds (9.4-12.1); Red Blood Count 4.71 M/mcL (3.82-4.97); Red Cell Distribution Width 14.1 % (11.5-14.5); Segmented Neutrophils % 79.8 %; White Blood Count 13.4 K/mcL (4.3-11.1)
[2021-07-11 05:38] LABS: BUN/Creatinine Ratio 28 (6-26); Blood Urea Nitrogen 18 mg/dL (8-23); Calcium 8.5 mg/dL (8.6-10.3); Carbon Dioxide 31 mEq/L (23-29); Chloride 99 mEq/L (98-107); Glucose 240 mg/dL (70-105); Magnesium 1.9 mg/dL (1.6-2.6); Osmolality,Calculated 300 (280-300); Phosphorous 2.6 mg/dL (2.7-4.5); Potassium 3.2 mEq/L (3.5-5.1); Sodium 140 mEq/L (136-145); eGFR For African Americans > 60 (> 60); eGFR For Non-African Americans > 60 (> 60)
[2021-07-11] MEDS: Ondansetron 4 MG/2 ML VIAL IVP PRN ×2 (07:05→21:02)
[2021-07-11] MEDS: *HR* Enoxaparin 40 MG/0.4 ML SYRINGE SQ SCH ×2 (07:05→18:00)
[2021-07-11] MEDS: Dexamethasone Sodium Phos/PF 10 MG/ML VIAL IVP SCH ×2 (09:09)
[2021-07-11] MEDS: Furosemide 40 MG TABLET PO SCH (09:09)
[2021-07-11] MEDS: NIFEdipine XL (24 HR) 30 MG TAB.ER.24 PO SCH (09:13)
[2021-07-11] MEDS: Insulin LISPRO 300 UNITS/3 ML VIAL SUBQ SCH ×4 (09:13→20:59)
[2021-07-11] MEDS: Insulin DETEMIR 100 UNIT/ML X5UNITS SUBQ SCH ×2 (09:13→20:59)
[2021-07-11] MEDS: levoFLOXacin 750 MG/150 ML 750 MG/150 ML BAG IVPB SCH (14:24)
[2021-07-12 03:16] LABS: Basophils # 0.1 K/mcL (0.0-0.2); Basophils % 0.4 %; Eosinophils % 0.1 %; Hematocrit 40.8 % (35.3-44.9); Hemoglobin 12.9 g/dL (11.5-15.4); Immature Granulocytes % 1.8 % (0-4); Lymphocytes # 1.6 K/mcL (0.6-4.6); Lymphocytes % 9.9 %; Mean Corpuscular HGB Conc 31.6 g/dL (31.6-35.5); Mean Corpuscular Hemoglobin 26.9 pg (28.0-33.3); Mean Corpuscular Volume 85.2 fL (83.0-100.0); Mean Platelet Volume 8.8 fL (9.4-12.4); Monocytes # 0.7 K/mcL (0.0-1.3); Neutrophils # 13.7 K/mcL (1.6-8.9); Platelet Count 423 K/mcL (140-400); Red Blood Count 4.79 M/mcL (3.82-4.97); Red Cell Distribution Width 14.4 % (11.5-14.5); Segmented Neutrophils % 83.8 %; White Blood Count 16.3 K/mcL (4.3-11.1)
[2021-07-12] MEDS: Ondansetron 4 MG/2 ML VIAL IVP PRN (03:19)
[2021-07-12] MEDS ORDERED: *HR* Promethazine 25 MG/ML VIAL IM ONE (03:29)
[2021-07-12 03:35] LABS: INR 1.2; Prothrombin Time 13.9 Seconds (9.4-12.1)
[2021-07-12 03:36] LABS: BUN/Creatinine Ratio 25 (6-26); Blood Urea Nitrogen 18 mg/dL (8-23); Calcium 8.6 mg/dL (8.6-10.3); Carbon Dioxide 35 mEq/L (23-29); Chloride 98 mEq/L (98-107); Glucose 142 mg/dL (70-105); Osmolality,Calculated 296 (280-300); Phosphorous 3.7 mg/dL (2.7-4.5); Potassium 3.8 mEq/L (3.5-5.1); Sodium 141 mEq/L (136-145); eGFR For African Americans > 60 (> 60); eGFR For Non-African Americans > 60 (> 60)
[2021-07-12] MEDS ORDERED: *HR* LORazepam 2 MG/ML VIAL IVP ONE (03:55)
[2021-07-12] MEDS: *HR* Enoxaparin 40 MG/0.4 ML SYRINGE SQ SCH (05:16)
[2021-07-12] MEDS ORDERED: Morphine Sulfate 2 MG/ML SYRINGE IVP ONE (05:22)
[2021-07-12 05:30] LABS: ABG Base Excess 6 mEq/L (-2 to 3); ABG HCO3 31 mEq/L (21-27); ABG Oxygen Saturation 83 % (95-98); ABG PCO2 46 mmHg (35-45); ABG PH 7.43 pH Units (7.32-7.45); ABG PO2 47 mmHg (85-104); ABG TCO2 32 mEq/L (20-26); Blood Gas Pressure Support 6 cm H2O
[2021-07-12] MEDS ORDERED: Isovue-370 500 ML BOTTLE IVP ONE (05:43)
[2021-07-12] MEDS: NIFEdipine XL (24 HR) 30 MG TAB.ER.24 PO SCH (09:38)
[2021-07-12] MEDS: Insulin DETEMIR 100 UNIT/ML X5UNITS SUBQ SCH ×2 (09:38→20:47)
[2021-07-12] MEDS: Dexamethasone Sodium Phos/PF 10 MG/ML VIAL IVP SCH (09:38)
[2021-07-12] MEDS: Furosemide 40 MG TABLET PO SCH (09:38)
[2021-07-12] MEDS: Insulin LISPRO 300 UNITS/3 ML VIAL SUBQ SCH ×4 (09:39→20:46)
[2021-07-12] MEDS: levoFLOXacin 750 MG/150 ML 750 MG/150 ML BAG IVPB SCH (14:01)
[2021-07-13] MEDS: Ondansetron 4 MG/2 ML VIAL IVP PRN (03:39)
[2021-07-13 07:25] LABS: INR 1.3; Prothrombin Time 14.1 Seconds (9.4-12.1)
[2021-07-13 08:06] LABS: BUN/Creatinine Ratio 33 (6-26); Basophils # 0.1 K/mcL (0.0-0.2); Basophils % 0.3 %; Blood Urea Nitrogen 19 mg/dL (8-23); Calcium 8.4 mg/dL (8.6-10.3); Carbon Dioxide 32 mEq/L (23-29); Chloride 99 mEq/L (98-107); Eosinophils # 0.2 K/mcL (0.0-0.6); Eosinophils % 0.8 %; Glucose 174 mg/dL (70-105); Hematocrit 39.5 % (35.3-44.9); Hemoglobin 12.8 g/dL (11.5-15.4); Immature Granulocytes % 1.1 % (0-4); Lymphocytes # 1.5 K/mcL (0.6-4.6); Lymphocytes % 7.8 %; Magnesium 2.1 mg/dL (1.6-2.6); Mean Corpuscular HGB Conc 32.4 g/dL (31.6-35.5); Mean Corpuscular Hemoglobin 27.9 pg (28.0-33.3); Mean Corpuscular Volume 86.1 fL (83.0-100.0); Mean Platelet Volume 9.6 fL (9.4-12.4); Monocytes # 0.7 K/mcL (0.0-1.3); Monocytes % 3.7 %; Neutrophils # 16.1 K/mcL (1.6-8.9); Osmolality,Calculated 286 (280-300); Phosphorous 3.2 mg/dL (2.7-4.5); Platelet Count 442 K/mcL (140-400); Potassium 3.8 mEq/L (3.5-5.1); Red Blood Count 4.59 M/mcL (3.82-4.97); Red Cell Distribution Width 14.6 % (11.5-14.5); Segmented Neutrophils % 86.3 %; Sodium 135 mEq/L (136-145); White Blood Count 18.6 K/mcL (4.3-11.1); eGFR For African Americans > 60 (> 60); eGFR For Non-African Americans > 60 (> 60)
[2021-07-13] MEDS: Furosemide 40 MG TABLET PO SCH (08:16)
[2021-07-13] MEDS: Insulin LISPRO 300 UNITS/3 ML VIAL SUBQ SCH ×3 (08:17→16:44)
[2021-07-13] MEDS: NIFEdipine XL (24 HR) 30 MG TAB.ER.24 PO SCH (08:17)
[2021-07-13] MEDS: Dexamethasone Sodium Phos/PF 10 MG/ML VIAL IVP SCH (08:17)
[2021-07-13] MEDS: Insulin DETEMIR 100 UNIT/ML X5UNITS SUBQ SCH ×2 (08:17→20:30)
[2021-07-13] MEDS ORDERED: Perflutren Lipid Microsphere 1.3 ML in 0.9 % Sodium Chloride 8.7 ML IVP PRN (08:39)
[2021-07-13] MEDS ORDERED: *HR* Midazolam HCl 2 MG/2 ML VIAL IVP ONE (10:05)
[2021-07-13] MEDS ORDERED: *HR* Midazolam HCl 5 MG/5 ML VIAL IVP ONE (10:05)
[2021-07-13] MEDS ORDERED: *HR* Rocuronium Bromide 100 MG/10 ML VIAL IVP ONE (10:05)
[2021-07-13] MEDS ORDERED: *HR* Etomidate 20 MG/10 ML AMPUL IVP ONE (10:05)
[2021-07-13] MEDS ORDERED: *HR* Succinylcholine 200 MG/10 ML VIAL IVP ONE (10:05)
[2021-07-13] MEDS: levoFLOXacin 750 MG/150 ML 750 MG/150 ML BAG IVPB SCH (13:19)
[2021-07-13] MEDS ORDERED: *HR* LORazepam 2 MG/ML VIAL IVP PRN (14:55)
[2021-07-13] MEDS ORDERED: *HR* Enoxaparin 40 MG/0.4 ML SYRINGE SQ ONE (18:28)
[2021-07-13] MEDS ORDERED: Artificial Tears SOLN 15 ML BOTTLE BOTH EYES PRN (20:47)
[2021-07-13] MEDS ORDERED: *HR* Enoxaparin 40 MG/0.4 ML SYRINGE SQ SCH (21:00)
[2021-07-13] MEDS ORDERED: *HR* Rocuronium Bromide 50 MG/5 ML VIAL IVP ONE (23:45)
[2021-07-13] MEDS ORDERED: 0.9 % Sodium Chloride 1,000 ML ONE (23:48)
[2021-07-14] MEDS: FentaNYL (PF) 1,000 MCG/100 ML IV.SOLN IVC SCH ×5 (00:23→21:25)
[2021-07-14] MEDS: Insulin LISPRO 300 UNITS/3 ML VIAL SUBQ SCH ×4 (00:25→16:40)
[2021-07-14] MEDS: Chlorhexidine Rinse 15 ML MOUTHWASH MM SCH ×3 (00:26→19:42)
[2021-07-14 00:48] LABS: ABG Base Excess 4 mEq/L (-2 to 3); ABG HCO3 31 mEq/L (21-27); ABG Oxygen Saturation 73 % (95-98); ABG PCO2 54 mmHg (35-45); ABG PH 7.36 pH Units (7.32-7.45); ABG PO2 41 mmHg (85-104); ABG TCO2 32 mEq/L (20-26); Blood Gas VT 400 cc
[2021-07-14] MEDS: Cisatracurium 200 MG in 0.9 % Sodium Chloride 180 ML IVC SCH ×4 (00:58→18:38)
[2021-07-14] MEDS ORDERED: *HR* Heparin 5,000 UNIT/ML VIAL IVP ONE (01:22)
[2021-07-14] MEDS ORDERED: *HR* Heparin 5,000 UNIT/ML VIAL IVP PRN ×2 (01:22)
[2021-07-14] MEDS: Norepinephrine 4 MG/254 ML IV.SOLN IVC SCH (01:32)
[2021-07-14] MEDS: Artificial Tears SOLN 15 ML BOTTLE BOTH EYES SCH ×6 (01:33→19:42)
[2021-07-14 04:01] LABS: Basophils # 0.1 K/mcL (0.0-0.2); Basophils % 0.2 %; Eosinophils % 0.6 %; Hematocrit 42.5 % (35.3-44.9); Hemoglobin 13.2 g/dL (11.5-15.4); Immature Granulocytes % 1.8 % (0-4); Immature Platelets 4.2 % (1.1-6.1); Lymphocytes # 1.9 K/mcL (0.6-4.6); Lymphocytes % 7.7 %; Mean Corpuscular HGB Conc 31.1 g/dL (31.6-35.5); Mean Corpuscular Hemoglobin 26.8 pg (28.0-33.3); Mean Corpuscular Volume 86.4 fL (83.0-100.0); Mean Platelet Volume 9.5 fL (9.4-12.4); Monocytes # 1.1 K/mcL (0.0-1.3); Monocytes % 4.4 %; Neutrophils # 20.9 K/mcL (1.6-8.9); Platelet Count 413 K/mcL (140-400); Red Blood Count 4.92 M/mcL (3.82-4.97); Red Cell Distribution Width 14.6 % (11.5-14.5); Segmented Neutrophils % 85.3 %; White Blood Count 24.5 K/mcL (4.3-11.1)
[2021-07-14 04:02] LABS: Eosinophils # 0.2 K/mcL (0.0-0.6)
[2021-07-14 04:07] LABS: ABG Base Excess 3 mEq/L (-2 to 3); ABG HCO3 30 mEq/L (21-27); ABG Oxygen Saturation 78 % (95-98); ABG PCO2 53 mmHg (35-45); ABG PH 7.36 pH Units (7.32-7.45); ABG PO2 45 mmHg (85-104); ABG TCO2 32 mEq/L (20-26); Blood Gas VT 400 cc
[2021-07-14] MEDS ORDERED: Lidocaine 2% Syringe 100 MG/5 ML ONE (04:13)
[2021-07-14 04:18] LABS: BUN/Creatinine Ratio 27 (6-26); Blood Urea Nitrogen 27 mg/dL (8-23); Calcium 8.7 mg/dL (8.6-10.3); Carbon Dioxide 29 mEq/L (23-29); Chloride 98 mEq/L (98-107); Glucose 176 mg/dL (70-105); Magnesium 2.1 mg/dL (1.6-2.6); Osmolality,Calculated 287 (280-300); Phosphorous 4.4 mg/dL (2.7-4.5); Potassium 3.8 mEq/L (3.5-5.1); Sodium 134 mEq/L (136-145); eGFR For African Americans > 60 (> 60); eGFR For Non-African Americans 55 (> 60)
[2021-07-14] MEDS ORDERED: Lidocaine -MPF 2% 5 ML VIAL SQ ONE (05:00)
[2021-07-14] MEDS: Heparin 25,000UNIT/250ML 1/2NS 25,000 UNIT/250 ML IV.SOLN IVC SCH ×2 (07:02→12:20)
[2021-07-14] MEDS: Dexamethasone Sodium Phos/PF 10 MG/ML VIAL IVP SCH (07:09)
[2021-07-14] MEDS ORDERED: Vancomycin 1,250 MG/262.5 ML IV.SOLN IVPB SCH (08:00)
[2021-07-14] MEDS ORDERED: MetroNIDAZOLE 500 MG/100 ML 500 MG/100 ML BAG IVPB SCH (09:00)
[2021-07-14] MEDS ORDERED: Vancomycin 2,000 MG/520 ML IV.SOLN IVPB ONE (09:00)
[2021-07-14] MEDS: NIFEdipine XL (24 HR) 30 MG TAB.ER.24 PO SCH (09:40)
[2021-07-14] MEDS: Pantoprazole 40 MG VIAL IVP SCH (09:40)
[2021-07-14] MEDS: Insulin DETEMIR 100 UNIT/ML X5UNITS SUBQ SCH ×2 (10:35→19:42)
[2021-07-14 11:00] LABS: Bilirubin,Urine Negative (Negative); Blood,Urine Small (Negative); Budding Yeast,Urine Moderate per hpf (None Seen); Clarity,Urine Turbid (Clear); Color,Urine Yellow (Yellow); Glucose,Urine (UA) Normal (Normal); Hyaline Casts,Urine Few per lpf (None Seen); Ketones,Urine Negative (Negative); Leukocyte Esterase,Urine Trace (Negative); Mucus,Urine Few per lpf (None-Few); Nitrite,Urine Negative (Negative); Protein,Urine 50 mg/dL (Neg-Trace); RBC,Urine 30-50 per hpf (0-3); Specific Gravity,Urine 1.028 (1.010-1.025); Squamous Epithelial Cell,Urine Few per hpf (None-Few); Transitional Epi Cells,Urine Few per hpf (None-Few); Urobilinogen,Urine Normal (Normal)
[2021-07-14] MEDS: Cefepime HCl 2,000 MG in 0.9 % Sodium Chloride Mini Bag 100 ML IVPB SCH (15:03)
[2021-07-14 15:37] LABS: Appearance of Body Fluid Cloudy (Clear); Volume of Body Fluid 15 mL
[2021-07-14] MEDS: MetroNIDAZOLE 500 MG/100 ML 500 MG/100 ML BAG IVPB SCH (15:44)
[2021-07-14] MEDS ORDERED: Cefepime HCl 1,000 MG in 0.9 % Sodium Chloride Mini Bag 100 ML IVP SCH (18:00)
[2021-07-14] MEDS: Vancomycin 1,250 MG/262.5 ML IV.SOLN IVPB SCH (19:42)
[2021-07-15] MEDS: Artificial Tears SOLN 15 ML BOTTLE BOTH EYES SCH ×6 (00:02→19:39)
[2021-07-15] MEDS: Insulin LISPRO 300 UNITS/3 ML VIAL SUBQ SCH ×7 (00:02→20:06)
[2021-07-15] MEDS: MetroNIDAZOLE 500 MG/100 ML 500 MG/100 ML BAG IVPB SCH ×3 (00:07→16:43)
[2021-07-15] MEDS: Cefepime HCl 2,000 MG in 0.9 % Sodium Chloride Mini Bag 100 ML IVPB SCH ×4 (00:07→23:25)
[2021-07-15] MEDS: Cisatracurium 200 MG in 0.9 % Sodium Chloride 180 ML IVC SCH ×4 (03:02→20:39)
[2021-07-15] MEDS: FentaNYL (PF) 1,000 MCG/100 ML IV.SOLN IVC SCH ×5 (03:22→21:41)
[2021-07-15] MEDS: Norepinephrine 4 MG/254 ML IV.SOLN IVC SCH (03:47)
[2021-07-15 04:01] LABS: Basophils % 0.2 %; Eosinophils # 0.1 K/mcL (0.0-0.6); Eosinophils % 0.5 %; Hematocrit 38.5 % (35.3-44.9); Hemoglobin 12.2 g/dL (11.5-15.4); Immature Granulocytes % 1.9 % (0-4); Lymphocytes # 1.3 K/mcL (0.6-4.6); Lymphocytes % 6.1 %; Mean Corpuscular HGB Conc 31.7 g/dL (31.6-35.5); Mean Corpuscular Hemoglobin 27.5 pg (28.0-33.3); Mean Corpuscular Volume 86.7 fL (83.0-100.0); Mean Platelet Volume 9.4 fL (9.4-12.4); Monocytes # 0.9 K/mcL (0.0-1.3); Neutrophils # 18.8 K/mcL (1.6-8.9); Platelet Count 254 K/mcL (140-400); Red Blood Count 4.44 M/mcL (3.82-4.97); Red Cell Distribution Width 14.4 % (11.5-14.5); Segmented Neutrophils % 87.3 %; White Blood Count 21.6 K/mcL (4.3-11.1)
[2021-07-15 04:20] LABS: BUN/Creatinine Ratio 38 (6-26); Blood Urea Nitrogen 41 mg/dL (8-23); Calcium 8.2 mg/dL (8.6-10.3); Carbon Dioxide 30 mEq/L (23-29); Chloride 100 mEq/L (98-107); Glucose 191 mg/dL (70-105); Magnesium 2.2 mg/dL (1.6-2.6); Osmolality,Calculated 297 (280-300); Phosphorous 4.9 mg/dL (2.7-4.5); Potassium 3.7 mEq/L (3.5-5.1); Sodium 136 mEq/L (136-145); eGFR For African Americans > 60 (> 60); eGFR For Non-African Americans 51 (> 60)
[2021-07-15 04:32] LABS: ABG Base Excess 5 mEq/L (-2 to 3); ABG HCO3 33 mEq/L (21-27); ABG Oxygen Saturation 86 % (95-98); ABG PCO2 64 mmHg (35-45); ABG PH 7.32 pH Units (7.32-7.45); ABG PO2 57 mmHg (85-104); ABG TCO2 35 mEq/L (20-26); Blood Gas Modality ASSIST CONTROL; Blood Gas VT 400 cc
[2021-07-15] MEDS: Heparin 25,000UNIT/250ML 1/2NS 25,000 UNIT/250 ML IV.SOLN IVC SCH (06:01)
[2021-07-15] MEDS: Chlorhexidine Rinse 15 ML MOUTHWASH MM SCH ×2 (08:06→19:46)
[2021-07-15] MEDS: Insulin DETEMIR 100 UNIT/ML X5UNITS SUBQ SCH ×2 (08:06→19:46)
[2021-07-15] MEDS: Pantoprazole 40 MG VIAL IVP SCH (08:06)
[2021-07-15] MEDS: Dexamethasone Sodium Phos/PF 10 MG/ML VIAL IVP SCH (08:34)
[2021-07-15] MEDS: Vancomycin 1,250 MG/262.5 ML IV.SOLN IVPB SCH ×2 (09:13→21:42)
[2021-07-15 11:15] LABS: ABG Base Excess 4 mEq/L (-2 to 3); ABG HCO3 33 mEq/L (21-27); ABG Oxygen Saturation 83 % (95-98); ABG PCO2 67 mmHg (35-45); ABG PO2 54 mmHg (85-104); ABG TCO2 35 mEq/L (20-26); Blood Gas VT 400 cc
[2021-07-15] MEDS: Midazolam HCl 50 MG/100 ML IV.SOLN IVC SCH ×3 (11:29→20:59)
[2021-07-15] MEDS ORDERED: Bumetanide 1 MG/4 ML VIAL IVP ONE (15:30)
[2021-07-15] MEDS: Bumetanide 12 MG in 0.9 % Sodium Chloride 48 ML IVC SCH (16:00)
[2021-07-15 16:14] LABS: ABG Base Excess 5 mEq/L (-2 to 3); ABG HCO3 35 mEq/L (21-27); ABG Oxygen Saturation 83 % (95-98); ABG PCO2 72 mmHg (35-45); ABG PH 7.29 pH Units (7.32-7.45); ABG PO2 55 mmHg (85-104); ABG TCO2 37 mEq/L (20-26); Blood Gas VT 400 cc
[2021-07-15] MEDS: Phenylephrine 10 MG in 0.9 % Sodium Chloride 250 ML IVC SCH (19:25)
[2021-07-16] MEDS: Insulin LISPRO 300 UNITS/3 ML VIAL SUBQ SCH ×6 (00:02→20:24)
[2021-07-16] MEDS: Artificial Tears SOLN 15 ML BOTTLE BOTH EYES SCH ×8 (00:02→23:27)
[2021-07-16] MEDS: Midazolam HCl 50 MG/100 ML IV.SOLN IVC SCH ×5 (00:21→19:40)
[2021-07-16 00:24] LABS: ABG Base Excess 4 mEq/L (-2 to 3); ABG HCO3 34 mEq/L (21-27); ABG Oxygen Saturation 83 % (95-98); ABG PCO2 75 mmHg (35-45); ABG PH 7.27 pH Units (7.32-7.45); ABG PO2 57 mmHg (85-104); ABG TCO2 36 mEq/L (20-26); Blood Gas Modality ASSIST CONTROL; Blood Gas VT 400 cc
[2021-07-16] MEDS: FentaNYL (PF) 1,000 MCG/100 ML IV.SOLN IVC SCH ×6 (01:24→22:40)
[2021-07-16] MEDS: Heparin 25,000UNIT/250ML 1/2NS 25,000 UNIT/250 ML IV.SOLN IVC SCH ×3 (01:32→20:35)
[2021-07-16] MEDS: MetroNIDAZOLE 500 MG/100 ML 500 MG/100 ML BAG IVPB SCH ×3 (01:32→20:19)
[2021-07-16] MEDS: Cisatracurium 400 MG in 0.9 % Sodium Chloride 360 ML IVC SCH ×2 (03:26→17:34)
[2021-07-16 04:15] LABS: Basophils # 0.1 K/mcL (0.0-0.2); Basophils % 0.2 %; Eosinophils % 0.2 %; Hematocrit 38.2 % (35.3-44.9); Immature Granulocytes % 2.7 % (0-4); Lymphocytes # 1.1 K/mcL (0.6-4.6); Lymphocytes % 4.9 %; Mean Corpuscular HGB Conc 31.4 g/dL (31.6-35.5); Mean Corpuscular Hemoglobin 27.3 pg (28.0-33.3); Mean Platelet Volume 9.8 fL (9.4-12.4); Monocytes % 4.7 %; Neutrophils # 18.8 K/mcL (1.6-8.9); Platelet Count 260 K/mcL (140-400); Red Blood Count 4.39 M/mcL (3.82-4.97); Red Cell Distribution Width 14.5 % (11.5-14.5); Segmented Neutrophils % 87.3 %; White Blood Count 21.5 K/mcL (4.3-11.1)
[2021-07-16 04:33] LABS: BUN/Creatinine Ratio 44 (6-26); Blood Urea Nitrogen 35 mg/dL (8-23); Carbon Dioxide 29 mEq/L (23-29); Chloride 101 mEq/L (98-107); Glucose 139 mg/dL (70-105); Magnesium 2.1 mg/dL (1.6-2.6); Osmolality,Calculated 302 (280-300); Phosphorous 3.2 mg/dL (2.7-4.5); Potassium 3.8 mEq/L (3.5-5.1); Sodium 141 mEq/L (136-145); eGFR For African Americans > 60 (> 60); eGFR For Non-African Americans > 60 (> 60)
[2021-07-16 05:05] LABS: ABG Base Excess 5 mEq/L (-2 to 3); ABG HCO3 32 mEq/L (21-27); ABG Oxygen Saturation 87 % (95-98); ABG PCO2 60 mmHg (35-45); ABG PH 7.34 pH Units (7.32-7.45); ABG PO2 58 mmHg (85-104); ABG TCO2 34 mEq/L (20-26)
[2021-07-16] MEDS: Chlorhexidine Rinse 15 ML MOUTHWASH MM SCH ×2 (08:17→20:39)
[2021-07-16] MEDS: Cefepime HCl 2,000 MG in 0.9 % Sodium Chloride Mini Bag 100 ML IVPB SCH ×2 (08:17→21:26)
[2021-07-16] MEDS: Pantoprazole 40 MG VIAL IVP SCH (08:18)
[2021-07-16] MEDS: Dexamethasone Sodium Phos/PF 10 MG/ML VIAL IVP SCH (08:18)
[2021-07-16] MEDS: Vancomycin 1,250 MG/262.5 ML IV.SOLN IVPB SCH ×2 (08:23→22:28)
[2021-07-16] MEDS: Insulin DETEMIR 100 UNIT/ML X5UNITS SUBQ SCH ×2 (08:23→21:26)
[2021-07-16] MEDS: Phenylephrine 10 MG in 0.9 % Sodium Chloride 250 ML IVC SCH (09:27)
[2021-07-16] MEDS: Bumetanide 12 MG in 0.9 % Sodium Chloride 48 ML IVC SCH ×2 (18:18→20:17)
[2021-07-16 21:54] LABS: ABG Base Excess 5 mEq/L (-2 to 3); ABG HCO3 33 mEq/L (21-27); ABG Oxygen Saturation 88 % (95-98); ABG PCO2 67 mmHg (35-45); ABG PH 7.31 pH Units (7.32-7.45); ABG PO2 63 mmHg (85-104); ABG TCO2 35 mEq/L (20-26); Blood Gas Modality ASSIST CONTROL; Blood Gas VT 400 cc
[2021-07-17] MEDS: Insulin LISPRO 300 UNITS/3 ML VIAL SUBQ SCH ×6 (00:07→20:16)
[2021-07-17 00:36] LABS: Basophils # 0.1 K/mcL (0.0-0.2); Basophils % 0.3 %; Hematocrit 36.1 % (35.3-44.9); Hemoglobin 11.3 g/dL (11.5-15.4); Immature Granulocytes % 2.6 % (0-4); Lymphocytes % 4.5 %; Mean Corpuscular HGB Conc 31.3 g/dL (31.6-35.5); Mean Corpuscular Hemoglobin 27.6 pg (28.0-33.3); Mean Platelet Volume 9.8 fL (9.4-12.4); Monocytes # 0.9 K/mcL (0.0-1.3); Neutrophils # 18.8 K/mcL (1.6-8.9); Platelet Count 228 K/mcL (140-400); Red Cell Distribution Width 14.6 % (11.5-14.5); Segmented Neutrophils % 88.6 %; White Blood Count 21.3 K/mcL (4.3-11.1)
[2021-07-17 00:37] LABS: VBG Ionized Calcium 1.11 mmol/L (1.15-1.35)
[2021-07-17] MEDS: Midazolam HCl 50 MG/100 ML IV.SOLN IVC SCH ×5 (00:43→21:45)
[2021-07-17 00:53] LABS: BUN/Creatinine Ratio 47 (6-26); Blood Urea Nitrogen 34 mg/dL (8-23); Calcium 7.7 mg/dL (8.6-10.3); Carbon Dioxide 31 mEq/L (23-29); Chloride 105 mEq/L (98-107); Glucose 193 mg/dL (70-105); Magnesium 1.9 mg/dL (1.6-2.6); Osmolality,Calculated 307 (280-300); Phosphorous 3.2 mg/dL (2.7-4.5); Potassium 3.4 mEq/L (3.5-5.1); Sodium 142 mEq/L (136-145); eGFR For African Americans > 60 (> 60); eGFR For Non-African Americans > 60 (> 60)
[2021-07-17] MEDS ORDERED: Calcium Gluconate 1gm/50mL 1 GM/50 ML BAG IVPB PRN (01:23)
[2021-07-17] MEDS: Potassium Chloride 40 MEQ/200 ML BAG IVPB PRN ×2 (01:37→10:26)
[2021-07-17] MEDS: Cefepime HCl 2,000 MG in 0.9 % Sodium Chloride Mini Bag 100 ML IVPB SCH ×3 (02:20→17:29)
[2021-07-17] MEDS: MetroNIDAZOLE 500 MG/100 ML 500 MG/100 ML BAG IVPB SCH ×3 (02:56→18:15)
[2021-07-17] MEDS: FentaNYL (PF) 1,000 MCG/100 ML IV.SOLN IVC SCH ×4 (03:30→19:10)
[2021-07-17] MEDS: Artificial Tears SOLN 15 ML BOTTLE BOTH EYES SCH ×5 (03:49→19:28)
[2021-07-17 05:13] LABS: ABG Base Excess 5 mEq/L (-2 to 3); ABG HCO3 32 mEq/L (21-27); ABG Oxygen Saturation 90 % (95-98); ABG PCO2 61 mmHg (35-45); ABG PH 7.33 pH Units (7.32-7.45); ABG PO2 66 mmHg (85-104); ABG TCO2 34 mEq/L (20-26); Blood Gas Modality ASSIST CONTROL; Blood Gas VT 400 cc
[2021-07-17] MEDS ORDERED: Calcium Gluconate 1gm/50mL 1 GM/50 ML BAG IVPB ONE (07:12)
[2021-07-17] MEDS: Dexamethasone Sodium Phos/PF 10 MG/ML VIAL IVP SCH (07:32)
[2021-07-17] MEDS: Vancomycin 1,250 MG/262.5 ML IV.SOLN IVPB SCH ×2 (07:32→19:47)
[2021-07-17] MEDS: Chlorhexidine Rinse 15 ML MOUTHWASH MM SCH ×2 (07:32→19:28)
[2021-07-17] MEDS: Pantoprazole 40 MG VIAL IVP SCH (07:32)
[2021-07-17] MEDS: Insulin DETEMIR 100 UNIT/ML X5UNITS SUBQ SCH ×2 (07:33→19:47)
[2021-07-17] MEDS: Phenylephrine 10 MG in 0.9 % Sodium Chloride 250 ML IVC SCH (08:08)
[2021-07-17 08:34] LABS: Magnesium 2.2 mg/dL (1.6-2.6); Potassium 3.6 mEq/L (3.5-5.1)
[2021-07-17] MEDS: Cisatracurium 400 MG in 0.9 % Sodium Chloride 360 ML IVC SCH ×2 (08:56→19:48)
[2021-07-17] MEDS: Bumetanide 12 MG in 0.9 % Sodium Chloride 48 ML IVC SCH (17:29)
[2021-07-17] MEDS: Heparin 25,000UNIT/250ML 1/2NS 25,000 UNIT/250 ML IV.SOLN IVC SCH (18:14)
[2021-07-18] MEDS: Artificial Tears SOLN 15 ML BOTTLE BOTH EYES SCH ×6 (00:17→19:59)
[2021-07-18] MEDS: FentaNYL (PF) 1,000 MCG/100 ML IV.SOLN IVC SCH ×5 (00:20→20:20)
[2021-07-18] MEDS: Midazolam HCl 50 MG/100 ML IV.SOLN IVC SCH ×5 (02:33→20:59)
[2021-07-18] MEDS: MetroNIDAZOLE 500 MG/100 ML 500 MG/100 ML BAG IVPB SCH ×3 (02:39→17:53)
[2021-07-18] MEDS: Cefepime HCl 2,000 MG in 0.9 % Sodium Chloride Mini Bag 100 ML IVPB SCH ×3 (03:06→17:52)
[2021-07-18 04:03] LABS: Basophils # 0.1 K/mcL (0.0-0.2); Basophils % 0.5 %; Eosinophils # 0.1 K/mcL (0.0-0.6); Eosinophils % 0.7 %; Hematocrit 36.8 % (35.3-44.9); Hemoglobin 11.3 g/dL (11.5-15.4); Immature Granulocytes % 4.5 % (0-4); Lymphocytes # 1.6 K/mcL (0.6-4.6); Lymphocytes % 7.6 %; Mean Corpuscular HGB Conc 30.7 g/dL (31.6-35.5); Mean Corpuscular Hemoglobin 27.4 pg (28.0-33.3); Mean Corpuscular Volume 89.3 fL (83.0-100.0); Mean Platelet Volume 9.7 fL (9.4-12.4); Neutrophils # 16.7 K/mcL (1.6-8.9); Nucleated Red Blood Cells 0.2 /100 WBC (0); Platelet Count 256 K/mcL (140-400); Red Blood Count 4.12 M/mcL (3.82-4.97); Red Cell Distribution Width 14.9 % (11.5-14.5); Segmented Neutrophils % 81.7 %; White Blood Count 20.5 K/mcL (4.3-11.1)
[2021-07-18 04:04] LABS: ABG Base Excess 5 mEq/L (-2 to 3); ABG HCO3 33 mEq/L (21-27); ABG Oxygen Saturation 88 % (95-98); ABG PCO2 63 mmHg (35-45); ABG PH 7.33 pH Units (7.32-7.45); ABG PO2 61 mmHg (85-104); ABG TCO2 35 mEq/L (20-26); Blood Gas Modality ASSIST CONTROL; Blood Gas VT 400 cc
[2021-07-18] MEDS: Insulin LISPRO 300 UNITS/3 ML VIAL SUBQ SCH ×6 (04:07→20:20)
[2021-07-18 04:12] LABS: VBG Ionized Calcium 1.14 mmol/L (1.15-1.35)
[2021-07-18 04:21] LABS: BUN/Creatinine Ratio 49 (6-26); Blood Urea Nitrogen 36 mg/dL (8-23); Calcium 7.9 mg/dL (8.6-10.3); Carbon Dioxide 32 mEq/L (23-29); Chloride 104 mEq/L (98-107); Glucose 196 mg/dL (70-105); Osmolality,Calculated 312 (280-300); Phosphorous 2.4 mg/dL (2.7-4.5); Potassium 3.7 mEq/L (3.5-5.1); Sodium 144 mEq/L (136-145); eGFR For African Americans > 60 (> 60); eGFR For Non-African Americans > 60 (> 60)
[2021-07-18] MEDS: Potassium Chloride 40 MEQ/200 ML BAG IVPB PRN ×3 (04:48→17:52)
[2021-07-18] MEDS: Phenylephrine 10 MG in 0.9 % Sodium Chloride 250 ML IVC SCH (07:14)
[2021-07-18] MEDS: Pantoprazole 40 MG VIAL IVP SCH (07:18)
[2021-07-18] MEDS: Chlorhexidine Rinse 15 ML MOUTHWASH MM SCH ×2 (07:18→19:59)
[2021-07-18] MEDS: Insulin DETEMIR 100 UNIT/ML X5UNITS SUBQ SCH ×2 (07:19→21:04)
[2021-07-18] MEDS: Cisatracurium 400 MG in 0.9 % Sodium Chloride 360 ML IVC SCH (08:02)
[2021-07-18] MEDS: Vancomycin 1,250 MG/262.5 ML IV.SOLN IVPB SCH (09:14)
[2021-07-18] MEDS ORDERED: *HR* Enoxaparin 30 MG/0.3 ML SYRINGE SQ SCH (11:15)
[2021-07-18] MEDS: *HR* Enoxaparin 120 MG/0.8 ML SYRINGE SQ SCH ×2 (14:00→15:14)
[2021-07-18 16:13] LABS: BUN/Creatinine Ratio 50 (6-26); Blood Urea Nitrogen 42 mg/dL (8-23); Carbon Dioxide 34 mEq/L (23-29); Chloride 103 mEq/L (98-107); Glucose 273 mg/dL (70-105); Magnesium 1.9 mg/dL (1.6-2.6); Osmolality,Calculated 318 (280-300); Potassium 3.7 mEq/L (3.5-5.1); Sodium 144 mEq/L (136-145); eGFR For African Americans > 60 (> 60); eGFR For Non-African Americans > 60 (> 60)
[2021-07-18] MEDS: Bumetanide 12 MG in 0.9 % Sodium Chloride 48 ML IVC SCH (16:16)
[2021-07-18 16:45] LABS: Phosphorous 2.8 mg/dL (2.7-4.5)
[2021-07-19] MEDS: Artificial Tears SOLN 15 ML BOTTLE BOTH EYES SCH ×6 (00:20→20:17)
[2021-07-19] MEDS: Insulin LISPRO 300 UNITS/3 ML VIAL SUBQ SCH ×6 (00:21→20:34)
[2021-07-19] MEDS: Potassium Chloride 40 MEQ/200 ML BAG IVPB PRN ×4 (00:51→18:46)
[2021-07-19] MEDS: FentaNYL (PF) 1,000 MCG/100 ML IV.SOLN IVC SCH ×5 (01:20→20:45)
[2021-07-19] MEDS: Midazolam HCl 50 MG/100 ML IV.SOLN IVC SCH ×5 (01:22→21:40)
[2021-07-19] MEDS: MetroNIDAZOLE 500 MG/100 ML 500 MG/100 ML BAG IVPB SCH ×3 (03:09→17:42)
[2021-07-19] MEDS: Cefepime HCl 2,000 MG in 0.9 % Sodium Chloride Mini Bag 100 ML IVPB SCH ×3 (03:13→20:20)
[2021-07-19 04:18] LABS: VBG Ionized Calcium 1.14 mmol/L (1.15-1.35)
[2021-07-19 04:21] LABS: Basophils # 0.1 K/mcL (0.0-0.2); Basophils % 0.7 %; Eosinophils # 0.1 K/mcL (0.0-0.6); Eosinophils % 0.6 %; Hematocrit 36.2 % (35.3-44.9); Hemoglobin 10.9 g/dL (11.5-15.4); Immature Granulocytes % 4.7 % (0-4); Lymphocytes # 1.6 K/mcL (0.6-4.6); Lymphocytes % 9.2 %; Mean Corpuscular HGB Conc 30.1 g/dL (31.6-35.5); Mean Corpuscular Volume 89.8 fL (83.0-100.0); Mean Platelet Volume 9.7 fL (9.4-12.4); Monocytes # 0.7 K/mcL (0.0-1.3); Monocytes % 3.8 %; Neutrophils # 14.3 K/mcL (1.6-8.9); Nucleated Red Blood Cells 0.5 /100 WBC (0); Platelet Count 232 K/mcL (140-400); Red Blood Count 4.03 M/mcL (3.82-4.97); Red Cell Distribution Width 15.4 % (11.5-14.5); White Blood Count 17.7 K/mcL (4.3-11.1)
[2021-07-19 04:37] LABS: BUN/Creatinine Ratio 53 (6-26); Blood Urea Nitrogen 41 mg/dL (8-23); Calcium 8.3 mg/dL (8.6-10.3); Carbon Dioxide 36 mEq/L (23-29); Chloride 105 mEq/L (98-107); Glucose 230 mg/dL (70-105); Osmolality,Calculated 321 (280-300); Phosphorous 2.7 mg/dL (2.7-4.5); Potassium 3.8 mEq/L (3.5-5.1); Sodium 147 mEq/L (136-145); eGFR For African Americans > 60 (> 60); eGFR For Non-African Americans > 60 (> 60)
[2021-07-19 04:41] LABS: ABG Base Excess 8 mEq/L (-2 to 3); ABG HCO3 36 mEq/L (21-27); ABG Oxygen Saturation 90 % (95-98); ABG PCO2 67 mmHg (35-45); ABG PH 7.34 pH Units (7.32-7.45); ABG PO2 64 mmHg (85-104); ABG TCO2 38 mEq/L (20-26); Blood Gas Modality AF; Blood Gas VT 400 cc
[2021-07-19] MEDS: *HR* Enoxaparin 120 MG/0.8 ML SYRINGE SQ SCH ×2 (05:59→17:25)
[2021-07-19] MEDS: Phenylephrine 10 MG in 0.9 % Sodium Chloride 250 ML IVC SCH (08:51)
[2021-07-19] MEDS: Pantoprazole 40 MG VIAL IVP SCH (08:54)
[2021-07-19] MEDS: Chlorhexidine Rinse 15 ML MOUTHWASH MM SCH ×2 (08:54→20:20)
[2021-07-19] MEDS: Insulin DETEMIR 100 UNIT/ML X5UNITS SUBQ SCH ×2 (08:57→21:06)
[2021-07-19] MEDS: Bumetanide 1 MG/4 ML VIAL IVP SCH (17:25)
[2021-07-19] MEDS: Cisatracurium 400 MG in 0.9 % Sodium Chloride 360 ML IVC SCH (18:47)
[2021-07-19] MEDS: Phenylephrine 50 MG in 0.9 % Sodium Chloride 250 ML IVC SCH (20:17)
[2021-07-20] MEDS: Artificial Tears SOLN 15 ML BOTTLE BOTH EYES SCH ×4 (00:29→12:33)
[2021-07-20] MEDS: Insulin LISPRO 300 UNITS/3 ML VIAL SUBQ SCH ×4 (00:30→12:35)
[2021-07-20] MEDS: FentaNYL (PF) 1,000 MCG/100 ML IV.SOLN IVC SCH ×3 (01:45→11:01)
[2021-07-20] MEDS: Potassium Chloride 40 MEQ/200 ML BAG IVPB PRN (02:32)
[2021-07-20] MEDS: MetroNIDAZOLE 500 MG/100 ML 500 MG/100 ML BAG IVPB SCH ×2 (02:34→11:06)
[2021-07-20] MEDS: Midazolam HCl 50 MG/100 ML IV.SOLN IVC SCH ×3 (02:50→13:30)
[2021-07-20] MEDS: Cefepime HCl 2,000 MG in 0.9 % Sodium Chloride Mini Bag 100 ML IVPB SCH ×2 (03:34→11:06)
[2021-07-20 04:07] LABS: ABG Base Excess 6 mEq/L (-2 to 3); ABG HCO3 35 mEq/L (21-27); ABG Oxygen Saturation 84 % (95-98); ABG PCO2 74 mmHg (35-45); ABG PH 7.28 pH Units (7.32-7.45); ABG PO2 57 mmHg (85-104); ABG TCO2 37 mEq/L (20-26); Blood Gas Modality ASSIST CONTROL; Blood Gas VT 400 cc
[2021-07-20 04:12] LABS: Basophils % 0.5 %; Immature Granulocytes % 4.7 % (0-4)
[2021-07-20 04:12] LABS: VBG Ionized Calcium 1.08 mmol/L (1.15-1.35)
[2021-07-20 04:14] LABS: Basophils # 0.1 K/mcL (0.0-0.2); Eosinophils # 0.2 K/mcL (0.0-0.6); Hematocrit 36.7 % (35.3-44.9); Hemoglobin 10.8 g/dL (11.5-15.4); Lymphocytes # 2.1 K/mcL (0.6-4.6); Mean Corpuscular HGB Conc 29.4 g/dL (31.6-35.5); Mean Corpuscular Hemoglobin 27.4 pg (28.0-33.3); Mean Corpuscular Volume 93.1 fL (83.0-100.0); Mean Platelet Volume 9.8 fL (9.4-12.4); Monocytes # 0.6 K/mcL (0.0-1.3); Monocytes % 3.3 %; Nucleated Red Blood Cells 0.9 /100 WBC (0); Platelet Count 210 K/mcL (140-400); Red Blood Count 3.94 M/mcL (3.82-4.97); Red Cell Distribution Width 15.9 % (11.5-14.5); Segmented Neutrophils % 79.5 %; White Blood Count 18.8 K/mcL (4.3-11.1)
[2021-07-20 04:32] LABS: Alanine Aminotransferase 16 Units/L (7-52); Albumin 2.6 g/dL (3.5-5.7); Albumin/Globulin Ratio 0.8 (1.1-2.2); Alkaline Phosphatase 118 Units/L (34-104); Aspartate Amino Transferase 18 Units/L (13-39); BUN/Creatinine Ratio 64 (6-26); Bilirubin,Indirect 0.3 mg/dL (0.0-1.0); Bilirubin,Total 0.3 mg/dL (0.3-1.0); Blood Urea Nitrogen 49 mg/dL (8-23); C-Reactive Protein 108 mg/L (Less than 10); Calcium 8.3 mg/dL (8.6-10.3); Carbon Dioxide 32 mEq/L (23-29); Chloride 107 mEq/L (98-107); Globulin 3.2 g/dL (2.4-3.5); Glucose 238 mg/dL (70-105); Magnesium 1.9 mg/dL (1.6-2.6); Osmolality,Calculated 327 (280-300); Phosphorous 3.6 mg/dL (2.7-4.5); Potassium 4.5 mEq/L (3.5-5.1); Sodium 148 mEq/L (136-145); Total Protein 5.8 g/dL (6.4-8.9); eGFR For African Americans > 60 (> 60); eGFR For Non-African Americans > 60 (> 60)
[2021-07-20] MEDS: *HR* Enoxaparin 120 MG/0.8 ML SYRINGE SQ SCH (05:52)
[2021-07-20] MEDS: Cisatracurium 400 MG in 0.9 % Sodium Chloride 360 ML IVC SCH (06:25)
[2021-07-20] MEDS: Heparin 25,000UNIT/250ML 1/2NS 25,000 UNIT/250 ML IV.SOLN IVC SCH (07:33)
[2021-07-20] MEDS: Vancomycin 1,250 MG/262.5 ML IV.SOLN IVPB SCH (07:33)
[2021-07-20] MEDS: Pantoprazole 40 MG VIAL IVP SCH (07:42)
[2021-07-20] MEDS: Bumetanide 1 MG/4 ML VIAL IVP SCH (07:42)
[2021-07-20] MEDS: Chlorhexidine Rinse 15 ML MOUTHWASH MM SCH (07:42)
[2021-07-20] MEDS: Insulin DETEMIR 100 UNIT/ML X5UNITS SUBQ SCH (07:42)
[2021-07-20] MEDS: Phenylephrine 50 MG in 0.9 % Sodium Chloride 250 ML IVC SCH (08:49)
[2021-07-20] MEDS: Norepinephrine 4 MG/254 ML IV.SOLN IVC SCH (10:23)
[2021-07-20] MEDS ORDERED: Norepinephrine 4 MG/254 ML IV.SOLN IVC SCH (10:45)
[2021-07-20 11:09] LABS: VBG Ionized Calcium 1.16 mmol/L (1.15-1.35)
[2021-07-20 11:19] LABS: Magnesium 2.5 mg/dL (1.6-2.6)
[2021-07-20 12:46] LABS: Potassium 5.6 mEq/L (3.5-5.1)
[2021-07-20 12:49] VITALS: TEMP 99.6
[2021-07-20 17:20] VITALS: BP 73/43; PULSE 107; O2SAT 85
== END 2021-07-20 17:23 | disposition expired | DRG 207 ==
LOC: 3NENU → ICNU 07-13 23:43
PROVIDERS: ADMIT Internal Medicine; ATTEND Internal Medicine